=== PATIENT | female | born 1990 | race Caucasian/White ===

== ENCOUNTER 2019-11-20 16:43 | Inpatient (IN) | payer BC ==
[~2019-11-20] VITALS: Ht 162.6 cm; Wt 74.1 kg
[2019-11-20 16:56] VITALS: BP 135/78
[2019-11-20] MEDS ORDERED: D5%-LACTATED RINGERS 1,000 ML IV SCH (17:43)
[2019-11-20] MEDS ORDERED: OXYTOCIN 30U/ 0.9% NaCL 500ML 500 ML IV PRN (17:43)
[2019-11-20] MEDS ORDERED: LACTATED RINGERS 1,000 ML IV SCH ×2 (17:43→18:43)
[2019-11-20] MEDS ORDERED: OXYTOCIN 30U/ 0.9% NaCL 500ML 500 ML IV ONE (17:43)
[2019-11-20] MEDS ORDERED: CALCIUM CARBONATE 500 MG TAB.CHEW PO PRN (18:00)
[2019-11-20] MEDS ORDERED: TERBUTALINE 1 MG/ML, 1ML IVPush PRN (18:00)
[2019-11-20] MEDS ORDERED: TERBUTALINE 1 MG/ML, 1ML SQ PRN (18:00)
[2019-11-20] MEDS ORDERED: FENTANYL PF 100 MCG/2ML IV PRN (18:00)
[2019-11-20] MEDS ORDERED: FENTANYL PF 100 MCG/2ML IVPush PRN (18:00)
[2019-11-20] MEDS ORDERED: ONDANSETRON 2MG/ML, 2ML IVPush PRN (18:00)
[2019-11-20] MEDS ORDERED: MISOPROSTOL 200 MCG TABLET ONE (18:16)
[2019-11-20] MEDS ORDERED: NEWBORN KIT ONE (18:16)
[2019-11-20] MEDS ORDERED: LIDOCAINE 1%, 20ML ONE (18:16)
[2019-11-20] MEDS ORDERED: OXYTOCIN 30U/ 0.9% NaCL 500ML 500 ML ONE (18:16)
[2019-11-20 18:19] LABS: BASOPHILS # (AUTO) 0.04 x10^3/uL (0-0.1); BASOPHILS % (AUTO) 0 % (0-1); EOSINOPHILS # (AUTO) 0.19 x10^3/uL (0-0.4); EOSINOPHILS % (AUTO) 1 % (1-7); LYMPHOCYTES # (AUTO) 2.16 x10^3/uL (1-3.4); LYMPHOCYTES % (AUTO) 15 % (22-44); MD NO; MEAN CORPUSCULAR HEMOGLOBIN 29.5 pg (27.0-34.8); MEAN CORPUSCULAR HGB CONC 33.8 g/dL (32.4-35.8); MEAN CORPUSCULAR VOLUME 87.2 fL (80-100); MEAN PLATELET VOLUME 7.3 fL (7.4-10.4); MONOCYTES # (AUTO) 0.61 x10^3/uL (0.2-0.8); MONOCYTES % (AUTO) 4 % (2-9); NEUTROPHILS # (AUTO) 11.06 x10^3/uL (1.8-6.8); NEUTROPHILS % (AUTO) 79 % (42-75); PLATELET COUNT 269 x10^3/uL (130-400); RED BLOOD COUNT 4.55 x10^6/uL (3.82-5.3); RED CELL DISTRIBUTION WIDTH 14.8 % (9.6-15.2)
[2019-11-20] MEDS ORDERED: FENTANYL PF 500 MCG, BUPIVACAINE/PF 0.5%, 30ML 62.5 ML in SODIUM CHLORIDE 0.9% 177.5 ML EPIDCONT SCH ×2 (18:48→22:30)
[2019-11-20] MEDS ORDERED: LACTATED RINGERS 1,000 ML IVBOLUS PRN (19:00)
[2019-11-20] MEDS ORDERED: EPHEDRINE 50 MG/ML, 1ML IVPush PRN (19:00)
[2019-11-20] MEDS ORDERED: BUPIVACAINE 0.25% ONE (23:03)
[2019-11-20] MEDS ORDERED: FENTANYL PF 100 MCG/2ML ONE (23:03)
[2019-11-20] MEDS ORDERED: FENTANYL/BUPIV./NS/PF 250 ML EPIDCONT SCH (23:52)
[2019-11-21] MEDS ORDERED: ONDANSETRON 2MG/ML, 2ML IVPush PRN
[2019-11-21] MEDS ORDERED: EPHEDRINE 50 MG/ML, 1ML IVPush PRN
[2019-11-21] MEDS: LACTATED RINGERS 1,000 ML IV SCH ×2 (01:22→08:15)
[2019-11-21] MEDS ORDERED: ONDANSETRON 2MG/ML, 2ML ONE (03:32)
[2019-11-21] MEDS ORDERED: OXYTOCIN 30U/ 0.9% NaCL 500ML 500 ML ONE ×2 (08:43→13:39)
[2019-11-21] MEDS: OXYTOCIN 30U/ 0.9% NaCL 500ML 500 ML IV SCH ×2 (09:10→19:10)
[2019-11-21 09:27] LABS: MEAN CORPUSCULAR HEMOGLOBIN 29.3 pg (27.0-34.8); MEAN CORPUSCULAR HGB CONC 33.7 g/dL (32.4-35.8); MEAN PLATELET VOLUME 7.2 fL (7.4-10.4); PLATELET COUNT 267 x10^3/uL (130-400); RED BLOOD COUNT 4.22 x10^6/uL (3.82-5.3); RED CELL DISTRIBUTION WIDTH 14.7 % (9.6-15.2)
[2019-11-21] MEDS ORDERED: OXYcodone/APAP 5/325MG TABLET PO PRN ×2 (09:30)
[2019-11-21] MEDS ORDERED: DOCUSATE 100 MG CAPSULE PO PRN (09:30)
[2019-11-21] MEDS ORDERED: ONDANSETRON 2MG/ML, 2ML IV PRN ×2 (09:30→11:30)
[2019-11-21] MEDS ORDERED: GLYCERIN ADULT SUPP PR PRN (09:30)
[2019-11-21] MEDS ORDERED: ACETAMINOPHEN 325 MG TABLET PO PRN ×2 (09:30→18:30)
[2019-11-21] MEDS ORDERED: IBUPROFEN 600 MG TABLET PO PRN (09:30)
[2019-11-21] MEDS ORDERED: METOCLOPRAMIDE 5 MG/ML, 2ML IV PRN (09:30)
[2019-11-21] MEDS ORDERED: IBUPROFEN 800 MG TABLET PO PRN (09:30)
[2019-11-21] MEDS ORDERED: SIMETHICONE 80 MG CHEW TAB PO PRN (09:30)
[2019-11-21] MEDS ORDERED: BISACODYL 10 MG SUPP PR PRN (09:30)
[2019-11-21 09:54] LABS: <RBC MORPHOLOGY> NORMAL; BANDS%(MANUAL) 8 % (0-7); LYMPHS% (MANUAL) 8 % (22-44); MD YES; MONOS#(MANUAL) 0.75 x10^3/uL (0.3-2.7); MONOS% (MANUAL) 4 % (2-9); SEG#(MANUAL) 15.04 x10^3/uL (1.8-6.8); SEGS% (MANUAL) 80 % (42-75)
[2019-11-21 09:55] LABS: <PLATELET ESTIMATE> ADEQUATE; <PLT MORPHOLOGY> NORMAL PLT MORPH
[2019-11-21] MEDS ORDERED: METHYLERGONOVINE 0.2 MG/ML IM PRN (10:00)
[2019-11-21] MEDS ORDERED: SODIUM BICARBONATE 1 MEQ/ML, 50ML VIAL ONE (10:04)
[2019-11-21] MEDS ORDERED: FENTANYL PF 100 MCG/2ML ONE ×2 (10:04→23:05)
[2019-11-21] MEDS ORDERED: LIDOCAINE-MPF 2% ,5ML ONE ×2 (10:04)
[2019-11-21 10:06] LABS: INTERNATIONAL NORMALIZED RATIO 0.9 (0.93-1.1); PROTHROMBIN TIME 9.5 Seconds (9.6-11.5)
[2019-11-21] MEDS ORDERED: ROPIvacaine/PF 0.5%, 30 ML ONE (10:13)
[2019-11-21] MEDS ORDERED: CEFAZOLIN 1,000 MG ONE ×2 (10:27)
[2019-11-21] MEDS ORDERED: TRANEXAMIC ACID 100 MG/ML, 10ML ONE (10:48)
[2019-11-21] MEDS ORDERED: TRANEXAMIC ACID 100 MG/ML, 10ML TP ONE (11:00)
[2019-11-21] MEDS ORDERED: MORPHINE SULFATE 4 MG/ML, 1ML IVPush PRN (11:30)
[2019-11-21] MEDS ORDERED: FENTANYL PF 100 MCG/2ML IV PRN (11:30)
[2019-11-21] MEDS ORDERED: OXYcodone 5 MG/5 ML ORAL.SOL UDC PO PRN (11:30)
[2019-11-21] MEDS ORDERED: DIPHENHYDRAMINE 50 MG/ML, 1ML IVPush PRN (11:30)
[2019-11-21] MEDS ORDERED: HALOPERIDOL 5 MG/ML IV PRN (11:30)
[2019-11-21] MEDS ORDERED: LABETALOL 5MG/ML, 20ML IV PRN (11:30)
[2019-11-21] MEDS ORDERED: DEXAMETHASONE 4 MG/ML, 1ML IV PRN (11:30)
[2019-11-21 16:43] LABS: MD YES; MEAN CORPUSCULAR HEMOGLOBIN 29.4 pg (27.0-34.8); MEAN CORPUSCULAR HGB CONC 33.7 g/dL (32.4-35.8); MEAN CORPUSCULAR VOLUME 87.3 fL (80-100); MEAN PLATELET VOLUME 7.2 fL (7.4-10.4); PLATELET COUNT 245 x10^3/uL (130-400); RED CELL DISTRIBUTION WIDTH 14.8 % (9.6-15.2)
[2019-11-21 16:45] LABS: <RBC MORPHOLOGY> NORMAL; BAND#(MANUAL) 1.78 x10^3/uL; BANDS%(MANUAL) 8 % (0-7); LYMPH#(MANUAL) 1.78 x10^3/uL (1-3.4); LYMPHS% (MANUAL) 8 % (22-44); MONOS#(MANUAL) 0.45 x10^3/uL (0.3-2.7); MONOS% (MANUAL) 2 % (2-9); SEG#(MANUAL) 18.29 x10^3/uL (1.8-6.8); SEGS% (MANUAL) 82 % (42-75)
[2019-11-21 16:46] LABS: <PLATELET ESTIMATE> ADEQUATE; <PLT MORPHOLOGY> NORMAL PLT MORPH
[2019-11-21] MEDS ORDERED: MISOPROSTOL 200 MCG TABLET ONE (17:00)
[2019-11-21] MEDS ORDERED: CARBOPROST TROMETHAMINE 250 MCG/ML, 1ML IM ONE (17:00)
[2019-11-21] MEDS ORDERED: ACETAMINOPHEN 325 MG TABLET ONE (18:23)
[2019-11-21] MEDS ORDERED: GENTAMICIN PER PHARMACY MC PRN (18:30)
[2019-11-21] MEDS ORDERED: CLINDAMYCIN PMX 900MG/50ML 50 ML ONE (19:35)
[2019-11-21 19:44] VITALS: BP 117/66
[2019-11-21] MEDS: CLINDAMYCIN PMX 900MG/50ML 50 ML IV SCH (19:54)
[2019-11-21 20:02] VITALS: BP 135/70
[2019-11-21] MEDS: GENTAMICIN 130 MG in SODIUM CHLORIDE 0.9% 50 ML IV SCH (21:40)
[2019-11-21] MEDS ORDERED: BUPIVACAINE 0.25% ONE (23:05)
[2019-11-21] MEDS ORDERED: LIDOCAINE/PF 1.5%-EPI 1:200K, 30ML ONE (23:05)
[2019-11-21] MEDS ORDERED: FENTANYL/BUPIV./NS/PF 250 ML EPIDCONT ONE (23:05)
[2019-11-22] MEDS ORDERED: CLINDAMYCIN PMX 900MG/50ML 50 ML ONE ×2 (03:59→11:58)
[2019-11-22] MEDS: CLINDAMYCIN PMX 900MG/50ML 50 ML IV SCH ×3 (04:00→21:08)
[2019-11-22 04:29] VITALS: BP 121/63
[2019-11-22] MEDS: OXYTOCIN 30U/ 0.9% NaCL 500ML 500 ML IV SCH ×2 (05:10→15:10)
[2019-11-22] MEDS: GENTAMICIN 130 MG in SODIUM CHLORIDE 0.9% 50 ML IV SCH ×3 (05:44→22:04)
[2019-11-22 06:42] LABS: CREATININE 0.51 mg/dL (0.55-1.02)
[2019-11-22 08:00] VITALS: BP 123/78
[2019-11-22] MEDS: PRENATAL VIT/IRON/FA 1 EACH TABLET PO SCH (12:00)
[2019-11-22] MEDS: FERROUS SULFATE 325 MG TABLET PO SCH (12:00)
[2019-11-22] MEDS ORDERED: FERROUS SULFATE 325 MG TABLET ONE (12:01)
[2019-11-22] MEDS ORDERED: PRENATAL VIT/IRON/FA 1 EACH TABLET ONE (12:01)
[2019-11-22 12:30] VITALS: BP 125/61
[2019-11-22 16:22] VITALS: BP 117/79
[2019-11-22 20:04] VITALS: BP 120/77
[2019-11-23] MEDS: OXYTOCIN 30U/ 0.9% NaCL 500ML 500 ML IV SCH ×2 (01:10→11:10)
[2019-11-23] MEDS: CLINDAMYCIN PMX 900MG/50ML 50 ML IV SCH (04:40)
[2019-11-23] MEDS: GENTAMICIN 130 MG in SODIUM CHLORIDE 0.9% 50 ML IV SCH (05:34)
[2019-11-23 08:00] VITALS: BP 117/79
[2019-11-23] MEDS: PRENATAL VIT/IRON/FA 1 EACH TABLET PO SCH (08:24)
[2019-11-23] MEDS: FERROUS SULFATE 325 MG TABLET PO SCH (08:24)
[2019-11-23] MEDS ORDERED: DOCU-131 PO (11:18)
[2019-11-23] MEDS ORDERED: IBUP-1222 PO (11:18)
== END 2019-11-23 12:10 | disposition home or self-care (01) | DRG 768 ==
LOC: LDOP 16:43 → LDIP 17:31 → 2NE 11-21 11:47 → 2NW 11-22 15:15
PROVIDERS: ADMIT Student in an Organized Health Care Education/Training Program; ATTEND Student in an Organized Health Care Education/Training Program
PROC: 10E0XZZ Delivery of Products of Conception, External Approach (ICD-10-PCS; principal; 2019-11-21)
PROC: 0W3R7ZZ Control Bleeding in Genitourinary Tract, Via Natural or Artificial Opening (ICD-10-PCS; 2019-11-21)
PROC: 0KQM0ZZ Repair Perineum Muscle, Open Approach (ICD-10-PCS; 2019-11-21)
PROC: 3E033VJ Introduction of Other Hormone into Peripheral Vein, Percutaneous Approach (ICD-10-PCS; 2019-11-21)
PROC: 3E0R3BZ Introduction of Anesthetic Agent into Spinal Canal, Percutaneous Approach (ICD-10-PCS; 2019-11-21)
PROC: 00HU33Z Insertion of Infusion Device into Spinal Canal, Percutaneous Approach (ICD-10-PCS; 2019-11-21)
DX: O99.52 Diseases of the respiratory system complicating childbirth (principal); Z37.0 Single live birth; O99.02 Anemia complicating childbirth; Z3A.39 39 weeks gestation of pregnancy; O70.1 Second degree perineal laceration during delivery; J45.990 Exercise induced bronchospasm; O72.1 Other immediate postpartum hemorrhage
CPT/HCPCS: 36415; J3490; J7121; 82565; 84112; 84520; 85025; 85384; 85461; 85610; 85730; 86592; 86850; 86900; 86923; G0378; J0690; J2405; J2790; J2795; J3010; J1580; J2210; J2590; J7120